=== PATIENT | female | born 1980 | race Caucasian/White ===

== ENCOUNTER → 2016-12-26 | Outpatient (CLI) | payer MEDICAID ==
--- NOTE | 2016-12-26 14:28 | RADRPT ---
PROCEDURE: XR Chest. CLINICAL INDICATION: Positive PPD. TECHNIQUE: Single frontal view. COMPARISON: None. FINDINGS: The lungs are clear. The heart size is normal. There is no pleural effusion. There is no pneumothorax. IMPRESSION: 1. No evidence of active tuberculosis. 2. Normal chest radiograph. RPTAT: QQ .Wm Khoury MD, MD Date Time Electronically viewed and signed by .Wm Khoury MD, on 12/26/2016 14:27 .R/
== END | disposition home or self-care (01) ==
LOC: RAD 09:48
PROVIDERS: ATTEND Obstetrics & Gynecology
DX: O26.90 Pregnancy related conditions, unspecified, unspecified trimester (principal); Z3A.00 Weeks of gestation of pregnancy not specified; R76.11 Nonspecific reaction to tuberculin skin test without active tuberculosis
CPT/HCPCS: 71010

== ENCOUNTER 2017-01-28 11:30 | Inpatient (IN) | payer MEDICAID ==
[~2017-01-28] VITALS: Ht 144.8 cm; Wt 72.1 kg
[2017-01-28 11:50] VITALS: BP 103/65; PULSE 74; RESP 16; Ht 144.8 cm; Wt 72.1 kg
[2017-01-28] MEDS ORDERED: LACTATED RINGER'S 1,000 ML IV SCH (11:51)
[2017-01-28] MEDS ORDERED: OXYTOCIN 30 UNITS/LR 500 ML IV PRN ×2 (12:00→20:30)
[2017-01-28] MEDS ORDERED: METHYLERGONOVINE 0.2 MG INJ IM PRN ×2 (12:00→20:30)
[2017-01-28] MEDS ORDERED: MISOPROSTOL 200 MCG TAB PR PRN ×2 (12:00→20:30)
[2017-01-28] MEDS ORDERED: CEFAZOLIN 2 GM/50 ML (PMX) 50 ML IV SCH (12:00)
[2017-01-28] MEDS ORDERED: OXYTOCIN 30 UNITS/LR 500 ML IV SCH (12:00)
[2017-01-28] MEDS ORDERED: CARBOPROST 250 MCG INJ IM PRN ×2 (12:00→20:30)
[2017-01-28 12:26] LABS: BASOPHILS % 0.2 % (0.0-2.0); EOSINOPHILS % 0.1 % (0.0-7.0); HEMATOCRIT 35.9 % (37.0-47.0); HEMOGLOBIN 12.1 g/dl (12.0-16.0); LYMPHOCYTES # 1.8 10^3/ul (0.8-2.9); LYMPHOCYTES % 18.9 % (15.0-51.0); MEAN CORPUSCULAR HEMOGLOBIN 31.6 pg (29.0-33.0); MEAN CORPUSCULAR HGB CONC 33.7 g/dl (32.0-37.0); MEAN CORPUSCULAR VOLUME 93.7 fl (82.0-101.0); MEAN PLATELET VOLUME 10.5 fl (7.4-10.4); MONOCYTE # 0.4 10^3/ul (0.3-0.9); MONOCYTES % 4.8 % (0.0-11.0); NEUTROPHILS % 75.7 % (39.0-77.0); PLATELET COUNT 200 10^3/UL (140-415); RED BLOOD COUNT 3.83 10^6/ul (4.20-5.40); RED CELL DISTRIBUTION WIDTH 15.2 % (11.5-14.5); WHITE BLOOD COUNT 9.2 10^3/ul (4.8-10.8)
[2017-01-28 12:42] LABS: INR 0.95; PARTIAL THROMBOPLASTIN TIME 26.3 Sec (25.0-35.0); PROTIME 12.7 Sec (12.2-14.2)
[2017-01-28] MEDS ORDERED: AMPICILLIN 2 GM/NS (PMX) 100 ML IV ONE (13:00)
[2017-01-28] MEDS ORDERED: ONDANSETRON 4 MG INJ IV STA (14:00)
[2017-01-28] MEDS ORDERED: CITRIC ACID/SODIUM CITRATE 15 ML CUP PO ONE (14:00)
[2017-01-28] MEDS ORDERED: PHENYLephrine (100 MCG/ML) 5ML SYG ONE (14:46)
[2017-01-28] MEDS ORDERED: FENTAnyl 50 MCG/ML VIAL ONE (14:46)
[2017-01-28] MEDS ORDERED: OXYTOCIN 10 UNIT INJ ONE (14:47)
[2017-01-28] MEDS ORDERED: METOCLOPRAMIDE 10 MG INJ ONE (14:47)
[2017-01-28] MEDS ORDERED: morphine SULFATE/PF (10 MG/10 ML) INJ ONE (14:47)
[2017-01-28] MEDS ORDERED: DEXAMETHASONE 4 MG/ML 1 ML INJ ONE (15:13)
[2017-01-28] MEDS ORDERED: morphine 4 MG/ML VIAL IV PRN (16:00)
[2017-01-28] MEDS ORDERED: NALOXONE (0.4 MG/ML) INJ IV PRN (16:00)
[2017-01-28] MEDS ORDERED: FENTAnyl 50 MCG/ML VIAL IV PRN ×3 (16:00)
[2017-01-28] MEDS ORDERED: NALBUPHINE HCL (10 MG/1 ML) INJ IV PRN (16:00)
[2017-01-28] MEDS ORDERED: MEPERIDINE 25 MG INJ IV PRN (16:00)
[2017-01-28] MEDS ORDERED: EPHEDrine SULFATE 50 MG/5 ML SYG IV PRN (16:00)
[2017-01-28] MEDS ORDERED: LABETALOL HCL 20MG INJ IV PRN (16:00)
[2017-01-28] MEDS ORDERED: morphine 2 MG INJ IV PRN (16:00)
[2017-01-28] MEDS ORDERED: IPRATROPIUM (NEB) 0.5 MG/2.5 ML AMP HHN PRN (16:00)
[2017-01-28] MEDS ORDERED: hydrALAzine 20 MG INJ IV PRN (16:00)
[2017-01-28] MEDS ORDERED: ONDANSETRON 4 MG INJ IV PRN ×2 (16:00)
[2017-01-28] MEDS ORDERED: HYDROmorphONE (0.2 MG/ML) 10ML SYG IV PRN ×3 (16:00)
[2017-01-28] MEDS ORDERED: ALBUTEROL 0.083% (NEB) 2.5 MG/3 ML AMP HHN PRN (16:00)
[2017-01-28] MEDS ORDERED: OXYCODONE/ACETAMINOPHEN (5/325) TAB PO PRN ×3 (16:00→20:30)
[2017-01-28] MEDS ORDERED: DIPHENHYDRAMINE 50 MG INJ IV PRN ×2 (16:00)
[2017-01-28] MEDS ORDERED: TRIMETHOBENZAMIDE 100 MG/ML VIAL IM PRN ×2 (16:00)
[2017-01-28] MEDS ORDERED: AMPICILLIN 1 GM/NS (PMX) 50 ML IV SCH (17:00)
--- NOTE | 2017-01-28 17:58 | HP ---
Date/Time of Note Date/Time of Note DATE: 01/28/17 TIME: 17:53 OB - History Hx of Present Free Text/Dictation Admitted for repeat section at term Last Menstrual Period: Apr 27, 2016 Estimated Due Date: Feb 04, 2017 : 3 Para: 2 Care: Good Care Ultrasounds: Normal mid trimester US Obstetrical Complications: None Medical Complications: Other (Via 2) Past Family/Social History * Past Medical, Surgical, Family and Obstetric Histories reviewed from chart. Blood Type: O+ Rubella: immune RPR/VDRL: Negative GBS Status: Positive HBsAG: Negative OB Admission Exam Vital Signs Vital Signs Vital Signs Date Time Temp Pulse Resp B/P Pulse Ox O2 Delivery O2 Flow Rate FiO2 01/28/17 11:50 98.7 74 16 103/65 Physical Exam HEENT: WNL Heart: Rhythm Normal Lungs: Clear, Equal Abdomen: WNL Extremities: Normal Reflexes: Normal Cervical Dilatation: None Effacement: 0% Station: -3 Membranes: Intact Heart Rate: 130's Accelerations: Accelerations Present Decelerations: No Decelerations Varibility: Marked Contractions on Admission: None Last 72 hours Lab Results CBC & BMP 01/28/17 12:13 OB Assessment/Plan Other Assessment: Term gestation Via 2 Other plan: Repeat section JESSIE RASMUSSEN MD Jan 28, 2017 17:58
--- NOTE | 2017-01-28 18:02 | OPR ---
Operative Report Planned Procedure Free Text/Dictation Patient refused tubal ligation Procedure date Jan 28, 2017 Procedure(s) Repeat section Performed by see signature line Assisting provider: YURY ALMANZAR MD Anesthesiologist: Jamal Cosme M.D. Pre-procedure diagnosis Term gestation Previous section 2 Anesthesia Type: spinal Procedure Description Under satisfactory anaesthesia a Pfannenstiel incision was made two fingerbreadth above and parallel to the symphysis of pubis around the previous scar and previous scar was removed Incision was extended laterally to the border of the Recti muscles on either sides. Incision was carried down with sharp and blunt dissection until fascia was reached. Anterior Recti muscle fascia was incised in mid portion and incision extended laterally to the border of skin incision. Fascia was mobilized from muscle superiorly and Recti muscles were from midline using sharp and blunt dissection. Peritoneum was visualized; Avoiding bowel and bladder it was incised . Incision was extended superiorly and inferiorly. Bladder blade was placed. Posterior peritoneum covering the lower segment of the uterus and lower segment of the uterus were incised.Low transverse uterine incision was made on lower segment of the uterus. Incision extended laterally to the border of Round Lig. on either sides and baby was delivered from OT. position . Amniotic fluid appeared clear. Cord blood was obtained and cord had 3 vessels . Placenta was delivered spontaneously and appeared intact and complete. Intrauterine cavity was rubbed with a laparotomy sponge. Uterine incision was closed in 2 layers using running stitches of No1 Monocryl. Hemostasis appeared secure. Ovaries and Fallopian tubes were within normal limits. Announcing needle, lap sponge and instrument count to be correct abdomen was closed in layers as follows: Peritoneum and Recti muscles with running stitches of 20 Vicryl. Fascia with running stitch of No 1 PDS. Subcutaneous tissue with running stitches of 20 Chromic and skin was closed using marv. Patient tolerated the procedure well and was transferred to [facility] in good condition. Post-Procedure Post-procedure diagnosis Status post repeat Findings: Live Baby Omental adhesion to the anterior abdominal wall which were lysed and ligated using 0 Vicryl stitch Estimated blood loss: other (500 mL) Specimen(s): no Grafts/Implants: no Complication(s): no Pt Condition post procedure: stable Disposition: PACU Physician Certification I, the undersigned physician, hereby certify that I have discussed the procedure described in this consent form with this patient (or the patient's legal care support representative), including: * The risk and benefits of the procedure; * Any adverse reactions that may reasonably be expected to occur; * Any alternative efficacious methods of treatment which may be medically viable ; * The potential problems that may occur during recuperation; * Potential for blood transfusion and associated risks/benefits; and * Any research or economic interest I may have regarding this treatment. I further certify that the patient/legally responsible person was encouraged to ask question and that all questions were answered. JESSIE RASMUSSEN MD Jan 28, 2017 18:02
[2017-01-28 20:10] VITALS: BP 93/64; PULSE 78; RESP 18
[2017-01-28] MEDS ORDERED: LANOLIN 7 GM TUBE TOP PRN (20:30)
[2017-01-28] MEDS ORDERED: NA PHOSPHATE/BIPHOS 133 ML ENEMA PR PRN (20:30)
[2017-01-28] MEDS: CEFAZOLIN 2 GM/50 ML (PMX) 50 ML IV SCH (20:46)
[2017-01-28] MEDS: SENNA/DOCUSATE NA (8.6MG/50MG) TAB PO SCH (21:00)
[2017-01-28 21:10] VITALS: BP 93/55; PULSE 74; RESP 18
[2017-01-28] MEDS: LACTATED RINGER'S 1,000 ML IV SCH (21:49)
[2017-01-29 00:15] VITALS: BP 87/57; PULSE 80; RESP 18
[2017-01-29 04:00] VITALS: BP 90/47; PULSE 79; RESP 18
[2017-01-29] MEDS: CEFAZOLIN 2 GM/50 ML (PMX) 50 ML IV SCH ×2 (04:01→12:24)
[2017-01-29] MEDS: KETOROLAC 30 MG INJ IV PRN ×2 (05:48→14:37)
[2017-01-29] MEDS: LACTATED RINGER'S 1,000 ML IV SCH (05:48)
[2017-01-29] MEDS: CLINDAMYCIN 300 MG CAP PO SCH ×3 (06:00→18:20)
[2017-01-29 09:00] VITALS: BP 76/44; PULSE 88; RESP 18
[2017-01-29] MEDS: SENNA/DOCUSATE NA (8.6MG/50MG) TAB PO SCH ×2 (09:00→21:24)
[2017-01-29 10:30] LABS: BASOPHILS % 0.2 % (0.0-2.0); EOSINOPHILS % 0.1 % (0.0-7.0); HEMATOCRIT 28.9 % (37.0-47.0); HEMOGLOBIN 9.6 g/dl (12.0-16.0); LYMPHOCYTES # 1.9 10^3/ul (0.8-2.9); LYMPHOCYTES % 15.5 % (15.0-51.0); MEAN CORPUSCULAR HEMOGLOBIN 31.5 pg (29.0-33.0); MEAN CORPUSCULAR HGB CONC 33.2 g/dl (32.0-37.0); MEAN CORPUSCULAR VOLUME 94.8 fl (82.0-101.0); MEAN PLATELET VOLUME 10.5 fl (7.4-10.4); MONOCYTE # 0.9 10^3/ul (0.3-0.9); MONOCYTES % 7.6 % (0.0-11.0); NEUTROPHIL # 9.2 10^3/ul (1.6-7.5); NEUTROPHILS % 76.3 % (39.0-77.0); PLATELET COUNT 181 10^3/UL (140-415); RED BLOOD COUNT 3.05 10^6/ul (4.20-5.40); RED CELL DISTRIBUTION WIDTH 15.4 % (11.5-14.5)
[2017-01-29] MEDS ORDERED: BISACODYL 10 MG SUPP PR ONE ×2 (10:30→22:33)
[2017-01-29 12:31] VITALS: BP 85/55; PULSE 91; RESP 17
[2017-01-29] MEDS: IBUPROFEN 800 MG TAB PO SCH ×2 (14:47→21:24)
[2017-01-29 15:40] VITALS: BP 90/53; PULSE 86; RESP 18
--- NOTE | 2017-01-29 18:04 | PN ---
Date/Time of Note Date/Time of Note DATE: 01/29/17 TIME: 18:03 Assessment/Plan VTE Prophylaxis VTE Prophylaxis Intervention: ambulation Lines/Catheters IV Catheter Type (from Nrsg): Peripheral IV Assessment/Plan Assessment/Plan Postop day 1 status post delivery We will advance diet and ambulate Continue to monitor vital signs Subjective 24 Hr Interval Summary No bowel movement Passing flatus Constitutional: BM, ambulates, flatus, improved, no complaints, urine output Pain Control: well controlled Exam/Review of Systems Vital Signs Vitals Vital Signs Date Time Temp Pulse Resp B/P Pulse Ox O2 Delivery O2 Flow Rate FiO2 01/29/17 15:40 99.1 86 18 90/53 Room Air 01/29/17 04:28 98 21 Intake and Output 01/28/17 01/28/17 01/29/17 15:00 23:00 07:00 Intake Total 100 ml 50 ml 50 ml Output Total 400 ml 1000 ml 1300 ml Balance -300 ml -950 ml -1250 ml Exam Free Text/Dictation Abdomen is soft not distended, as are present Incision is covered Constitutional: alert, oriented, well developed Psych: nl mood/affect, no complaints Head: atraumatic, normocephalic Eyes: EOMI, nl conjunctiva, nl lids, nl sclera ENMT: mucosa pink and moist, nl external ears & nose, nl lips & teeth, nl nasal mucosa & septum Neck: non-tender, supple Respiratory: clear to auscultation, normal air movement Cardiovascular: nl pulses, regular rate and rhythm Gastrointestinal: nl liver, spleen, non-tender, soft Musculoskeletal: nl extremities to inspection, nl gait and stance Extremities: normal pulses Neurological: COOKER SODA II-XII intact, nl mental status, nl speech, nl strength Skin: nl turgor, rash or lesions Lymph: nl lymph nodes Results Result Diagram: 01/29/17 0959 JESSIE RASMUSSEN MD Jan 29, 2017 18:04
[2017-01-29 19:45] VITALS: BP 95/60; PULSE 87; RESP 18
[2017-01-29] MEDS ORDERED: INFLUENZA VIRUS VACCINE 0.5 ML SYG IM* ONE (21:00)
[2017-01-29] MEDS: HYDROCODONE/APAP (5/325) TAB PO PRN (22:34)
[2017-01-30] MEDS: CLINDAMYCIN 300 MG CAP PO SCH ×4 (00:32→17:51)
[2017-01-30 03:45] VITALS: BP 88/58; PULSE 71; RESP 18
[2017-01-30] MEDS: IBUPROFEN 800 MG TAB PO SCH ×3 (05:33→22:03)
[2017-01-30 08:00] VITALS: BP 92/52; PULSE 81; RESP 17
[2017-01-30] MEDS: SENNA/DOCUSATE NA (8.6MG/50MG) TAB PO SCH ×2 (09:12→22:04)
[2017-01-30] MEDS: HYDROCODONE/APAP (5/325) TAB PO PRN ×2 (09:13→19:51)
--- NOTE | 2017-01-30 14:52 | DS ---
Date/Time of Note Date/Time of Note Home next day DATE: 01/30/17 TIME: 14:51 Obstetrical Discharge Record Final Diagnosis Final Diagnosis: Term delivered Other Final Diagnosis Status post repeat Section Section: Repeat Condition on Discharge Physical Assessment Last Vitals: See nurse's notes Voiding: Yes Bowel Movement: Yes Breast: Soft, non-tender, Filling Fundus: Firm Abdomen and Incision: Abdomen is soft bowel sounds present Abdomen is not distended Incision is healing well without induration and or erythema Episiotomy: Not applicable Calf Tenderness: No Patient Condition: Good JESSIE RASMUSSEN MD Jan 30, 2017 14:52
--- NOTE | 2017-01-30 14:53 | DS ---
Date/Time of Note Date/Time of Note DATE: 01/30/17 TIME: 14:52 Discharge Summary Admission/Discharge Info Admit Date/Time Jan 28, 2017 at 11:30 Discharge Date/Time January 31, 2017 Discharge Diagnosis Status post repeat Patient Condition: Good Procedures Repeat delivery Hx of Present Illness 36-year-old female had repeat delivery Hospital Course Uncomplicated Follow-up Plan To 3 days in clinic for staple removal Primary Care Provider Not On Staff Doctor Time spent on discharge: > 30 minutes JESSIE RASMUSSEN MD Jan 30, 2017 14:53
--- NOTE | 2017-01-30 14:54 | PD.PPDC ---
[employer] Discharge Instruction Provider Information Physician Information 36-year-old female had repeat Diagnosis Final Diagnosis: Status post Condition Patient Condition: Good Diet Diet: Resume Regular Diet Activity/Restrictions Activity: July Shower Restrictions: No Exercising No Lifting Nothing in the Vagina Return to Work or School: Apr 06, 2017 Follow-up Follow-up with Physician: 2, 3, Day/Days (In clinic for staple removal) Return to clinic for [employer] Instructions: Fever greater than 101 Chills OB Instructions: Breast Tenderness Depression Comment: Pelvic rest no heart activity for 2 months Surgical Instructions: Incisional Drainage Incisional Redness JESSIE RASMUSSEN MD Jan 30, 2017 14:54
[2017-01-30] MEDS ORDERED: IBUP800T25 PO (14:55)
[2017-01-30 15:50] VITALS: BP 97/65; PULSE 85; RESP 16
[2017-01-30 20:00] VITALS: BP 103/56; PULSE 93; RESP 20
[2017-01-31] MEDS: CLINDAMYCIN 300 MG CAP PO SCH ×3 (00:57→11:46)
[2017-01-31 04:00] VITALS: BP 83/54; PULSE 82; RESP 20
[2017-01-31] MEDS: IBUPROFEN 800 MG TAB PO SCH ×2 (06:14→15:05)
[2017-01-31 08:30] VITALS: BP 88/50; PULSE 77; RESP 17
[2017-01-31] MEDS ORDERED: DIPHTH/TET/ACEL PERTUSS (ADULT) 0.5 ML VIAL IM* ONE (09:00)
[2017-01-31] MEDS ORDERED: MEASLES,MUMPS,RUBELLA VACCINE INJ SC* ONE (09:00)
[2017-01-31] MEDS: SENNA/DOCUSATE NA (8.6MG/50MG) TAB PO SCH (10:02)
[2017-01-31] MEDS: HYDROCODONE/APAP (5/325) TAB PO PRN (15:08)
== END 2017-01-31 17:58 | disposition home or self-care (01) | DRG 766 ==
LOC: L-D 11:30 → PP1 19:33
PROVIDERS: ADMIT Obstetrics & Gynecology; ATTEND Obstetrics & Gynecology
PROC: 10D00Z1 Extraction of Products of Conception, Low, Open Approach (ICD-10-PCS; principal; 2017-01-28 12:30)
DX: O34.211 Maternal care for low transverse scar from previous cesarean delivery (principal); Z37.0 Single live birth; Z3A.00 Weeks of gestation of pregnancy not specified
CPT/HCPCS: 85025; 85610; 85730; 86592; 86850; 86900; 86901; 86920; 87340; 90686; 90715; 94760; 99464; J0290; J0690; J1100; J1885; J2274; J2370; J2405; J2590; J2765; J3010; J3250; J7120